=== PATIENT | female | born 1970 | race Caucasian/White ===

== ENCOUNTER 2016-05-26 10:18 | Emergency (ER) | payer OTHER ==
[2016-05-26 10:37] VITALS: BP 126/81
[2016-05-26] MEDS ORDERED: METOCLOPRAMIDE HCL 5 MG/ML VIAL IM ONE (10:46)
[2016-05-26] MEDS ORDERED: diphenhydrAMINE HCL 50 MG/ML VIAL IM ONE (10:46)
[2016-05-26] MEDS ORDERED: KETOROLAC TROMETHAMINE 30 MG/ML VIAL IM ONE (10:46)
[2016-05-26] MEDS ORDERED: KETOROLAC TROMETHAMINE 30 MG/ML VIAL ONE (10:49)
[2016-05-26] MEDS ORDERED: METOCLOPRAMIDE HCL 5 MG/ML VIAL ONE (10:49)
[2016-05-26] MEDS ORDERED: diphenhydrAMINE HCL 50 MG/ML VIAL ONE (10:49)
--- OUTSIDE RECORDS SUMMARY | 2016-05-26 10:55 | XMS REPORT | Continuity of Care Document ---
:1970 Author Organization [facility] ([facility]) Address [address] [place] [address] Phone [phone] Care Team Providers Name Role Phone Provider, No-Primary Care Primary Care Provider Unavailable Source Comments This disclosure is being made pursuant to the Care Everywhere program, applicable federal and state laws, and may not contain all informaitonavailable regarding this patient.[facility] ([facility]) Active Allergies and Adverse Reactions Allergen Noted Date Severity Reactions Comments Codeine 02/18/2012 Nausea & Vomiting Oxycodone-Acetaminophen 03/17/2015 Rash Penicillins 02/18/2012 Nausea & Vomiting Current Medications Prescription Sig. Disp. Refills Start Date End Date Status econazole 1 % cream Apply topically 30 g 5 03/28/2015 Active daily. diphenhydrAMINE 50 mg Take 50 mg by Active capsule mouth 2 times daily. venlafaxine 150 mg XR Take 150 mg by 11 09/18/2015 Active capsule mouth daily. hydrocortisone 2.5 % Apply topically 80 g 3 09/26/2015 Active cream 2 times daily. ALPRAZolam (XANAX) 0.5 Take 1 tablet 120 tablet 5 12/16/2015 Active mg tablet (0.5 mg total) by mouth 4 times daily as needed. gabapentin 100 mg Take 1 capsule 270 capsule 11 02/13/2016 Active capsule (100 mg total) by mouth 3 times daily. levothyroxine 125 mcg Take 1 tablet 30 tablet 11 02/17/2016 Active tablet (125 mcg total) by mouth every morning before breakfast. oxybutynin 5 mg tablet Take 5 mg by 03/18/2016 Active mouth 2 times daily. phentermine (ADIPEX-P) Take 1 tablet 30 tablet 0 04/14/2016 Active 37.5 mg tablet (37.5 mg total) by mouth every morning after breakfast. Take 1 to 2 hours after breakfast. VENLAFAXINE 150 mg XR TAKE ONE CAPSULE 30 capsule 11 04/13/2016 Active capsule BY MOUTH EVERY DAY Active Problems Problem Noted Date Follow-up examination after gynecological surgery 02/04/2015 Menorrhagia with irregular cycle 01/20/2015 Abnormal uterine bleeding 01/08/2015 High body mass index 12/05/2013 Most Recent Encounters Date Type Specialty Providers Description 04/12/2016 Refill [facility] Jason Pearson, Dx: Anxiety state DO (Primary Dx) 04/09/2016 Office Visit [facility] Jason Pearson Dx: Morbid obesity DO due to excess calories (Primary Dx) 03/23/2016 Telephone [facility] Jason Pearson Chief Comp: DO Medication Reaction 03/16/2016 Orders/Notes [facility] Eleazar, Maia Ansari CMA 03/12/2016 Office Visit [facility] Jason Pearson Dx: Neuropathic pain, DO leg, right (Primary Dx) Immunizations Name Dates Previously Given Next Due Novel Influenza H1N1, nasal 12/06/2008 Social History Tobacco Use Types Packs/Day Years Used Date Former Smoker Quit: 04/15/2007 Alcohol Use Drinks/Week oz/Week Comments No Last Filed Vital Signs Vital Sign Reading Time Taken Blood Pressure 102/68 04/09/2016 3:10 PM [employer] Pulse 72 04/09/2016 3:10 PM [employer] Temperature 36.9 C (98.5 F) 04/09/2016 3:10 PM [employer] Respiratory Rate 18 04/09/2016 3:10 PM [employer] Height 1.6 m (5' 2.99") 03/17/2015 10:01 PM [employer] Weight 120.929 kg (266 lb 9.6 oz) 04/09/2016 3:10 PM [employer] Body Mass Index 47.24 04/09/2016 3:10 PM [employer] Oxygen Saturation 98% 03/17/2015 11:50 PM [employer] Plan of Care Health Maintenance Due Date Last Done Comments Hepatitis B Vaccine (1 of 3 - Primary Series) 1970 Tdap Vaccine 08/28/1979 MMR Vaccine 1986 Td Vaccine 1986 Cervical Cancer Screening 1998 Mammogram 12/08/2012 12/09/2011 Influenza Vaccine: Seasonal (Season Ended) 2016 Lipid Disorder Screening 04/14/2018 04/14/2013 Results from Last 3 Months [facility] THYROID-STIMULATING HORMONE (TSH) (04/09/2016 4:01 PM) Component Value Range [facility] Thyroid-Stimulating Hormone (TSH) 0.50 0.24-5.40 uIU/mL Specimen Blood
--- NOTE | 2016-05-26 11:11 | ERNOTE ---
Headache ER HPI - Narrative Date of Service: 05/26/16 - General Presenting Symptoms: "migraine" Time Seen by Provider: 05/26/16 10:42 Source: patient Exam Limitations: no limitations - Immun/Allergies/Home Medications Allergies/Adverse Reactions: Allergies penicillin V potassium [From Pen-Vee K] Adverse Reaction (Mild, Verified 10:37) codeine [Codeine] Adverse Reaction (Verified 05/26/16 10:37) Home Medications: HOME MEDICATIONS ALPRAZolam [Xanax] 0.5 mg PO DAILY 12/21/11 [Last Taken 07/12/12] Levothyroxine Sodium [Levothroid] 25 mcg PO DAILY 12/21/11 [Last Taken 07/13/12] Venlafaxine HCl [Venlafaxine HCl ER] 75 mg PO DAILY 01/27/12 [Last Taken ] - History of Present Illness Narrative: Pt. comes in with a headache that started this morning, nausea, and vomiting. Pt. c/o photophobia, and phonophobia as associated symptoms. Pt. states that she has had migraines in the past and this is similar. Pt. denies any vision changes or double vision, recent illness or fever. Pt. denies any SOB, CP, alleviating or aggravating factors and states that she took Aleve and Tylenol without relief. Review of Systems - Review of Systems Constitutional: Present: no symptoms reported. Absent: recent illness, fever, chills, weakness, fatigue, malaise EYE: Present: no symptoms reported ENT: Present: no symptoms reported Respiratory: Present: no symptoms reported. Absent: shortness of breath, cough , wheezing Cardiology: Present: no symptoms reported. Absent: chest pain, palpitations, edema Gastrointestinal/Abdominal: Present: nausea, vomiting. Absent: diarrhea, abdominal pain Genitourinary: Present: no symptoms reported Musculoskeletal: Present: no symptoms reported. Absent: back pain, joint pain Neurological: Present: headache. Absent: dizziness/light-headedness, numbness, tingling All Other Systems: All systems neg except as marked - Patient's Past Medical History Patient History - Medical: Headache, Hypothyroidism, Migraines Patient History - Cardiac/Respiratory: No pertinent hx Patient History - Cancer: No Hx of Cancer Patient History - Other: None - Social History Living Situations: home Psych History: No pertinent hx Physical Exam - Physical Exam General Appearance: Present: wd/wn, alert, no apparent distress Eye Exam: Normal inspection: bilateral, PERRL: bilateral, EOMI: bilateral Ears, Nose, Throat: Present: normal ENT inspection, normal pharynx Neck: Present: normal inspection, nontender. Absent: lymphadenopathy (R), lymphadenopathy (L) Respiratory: Present: no respiratory distress, normal breath sounds, no accessory muscle use, chest nontender, lungs clear Cardiovascular/Chest: Present: regular rate, rhythm, no murmur, normal peripheral pulses Gastrointestinal/Abdominal: Present: normal bowel sounds, nontender, nondistended, soft, no organomegaly Back Exam: Present: normal inspection Extremity Exam: Present: normal inspection Neurological Exam: Present: alert, oriented, normal mood/affect, no motor/ sensory deficits, occupational therapy assist II-XII nml as tested, normal cerebellar test Skin Exam: Present: normal color, warm/dry. Absent: pallor, skin rash ED Progress - Vital Signs Patient's Vital Signs:: I have reviewed the patient's vital signs. Vital Signs: Vital Signs 05/26/16 10:32 Temperature 37.0 C Pulse Rate 80 Respiratory 12 Rate Blood Pressure 126/81 O2 Sat by Pulse 99 Oximetry - Progress/Reassessment Chief Complaint: Headache Progress:: Improved Departure Clinical Impression: Migraine Qualifiers: Migraine type: without aura Status migrainosus presence: without status migrainosus Intractability: not intractable Qualified Code(s): G43.009 - Migraine without aura, not intractable, without status migrainosus - Departure Disposition: Home self-care Condition: Good Instructions: Recurrent Migraine Headache Additional Instructions: Please follow up with primary provider in 2-3 days. Referrals: Jason Pearson DO [Primary Care Provider] -
== END 2016-05-26 11:55 | disposition home or self-care (01) ==
LOC: ER 10:18
DX: G43.009 Migraine without aura, not intractable, without status migrainosus (principal); E03.9 Hypothyroidism, unspecified